=== PATIENT | female | born 1970 ===

== ENCOUNTER 2017-04-26 17:29 | Emergency (ER) | payer BC ==
[2017-04-26 17:34] VITALS: BP 131/76; PULSE 104; RESP 16; TEMP 99.1; O2SAT 100
--- NOTE | 2017-04-26 18:25 | ED PDOC ---
Lower Extremity Pain/Injury Time Seen by Provider: 04/26/17 17:31 Chief Complaint (Nursing): Lower Extremity Problem/Injury Chief Complaint (Provider): Right knee pain History Per: Patient History/Exam Limitations: no limitations Onset/Duration Of Symptoms: Days (x 1 month) Current Symptoms Are (Timing): Still Present Additional Complaint(s): Ceci Johnson is a 47-year-old female who presents to the emergency department with complaints of right knee pain, ongoing for 1 month. She had an X -Ray taken outpatient, which was reportedly normal. Patient has not seen an Orthopedics specialist or had an MRI yet. PMD: Dr. Mika Ribeiro Past Medical History Reviewed: Historical Data, Nursing Documentation, Vital Signs Vital Signs: Last Vital Signs Temp 99.1 F 04/26/17 17:31 Pulse 104 H 04/26/17 17:31 Resp 16 04/26/17 17:31 BP 131/76 04/26/17 17:31 Pulse Ox 100 04/26/17 17:31 - Medical History PMH: No Chronic Diseases - Surgical History Surgical History: No Surg Hx - Family History Family History: States: No Known Family Hx - Living Arrangements Living Arrangements: With Family - Social History Current smoker - smoking cessation education provided: No - Home Medications Home Medications: Ambulatory Orders Medication Instructions Recorded Ibuprofen [Motrin Tab] 800 mg PO Q6H PRN #20 tab 04/26/17 - Allergies Allergies/Adverse Reactions: Allergies Allergy/AdvReac Type Severity Reaction Status Date / Time No Known Allergies Allergy Verified 04/26/17 17:31 Review of Systems ROS Statement: Except As Marked, All Systems Reviewed And Found Negative Musculoskeletal: Positive for: Leg Pain (Right knee pain) Physical Exam - Reviewed Nursing Documentation Reviewed: Yes Vital Signs Reviewed: Yes - Physical Exam Appears: Positive for: Well, Non-toxic, No Acute Distress Head Exam: Positive for: ATRAUMATIC, NORMAL INSPECTION, NORMOCEPHALIC Skin: Positive for: Normal Color, Warm, DRY Eye Exam: Positive for: Normal appearance ENT: Positive for: Normal ENT Inspection Neck: Positive for: Normal, Painless ROM Respiratory: Negative for: Accessory Muscle Use, Respiratory Distress Back: Positive for: Normal Inspection Extremity: Positive for: Normal ROM. Negative for: Tenderness, Deformity, Swelling Neurologic/Psych: Positive for: Alert, Oriented - ECG O2 Sat by Pulse Oximetry: 100 (RA) Pulse Ox Interpretation: Normal Medical Decision Making Medical Decision Making: Discussed f/u with orthopedics. Rx given for motrin. Disposition - Clinical Impression Clinical Impression: Right knee pain - Patient ED Disposition Is Patient to be Admitted: No Counseled Patient/Family Regarding: Diagnosis, Need For Followup, Rx Given - Disposition Disposition: Routine/Home Disposition Time: 18:22 Condition: STABLE Prescriptions: Ibuprofen [Motrin Tab] 800 mg PO Q6H PRN #20 tab PRN Reason: Pain Instructions: Knee Pain (ED) Print Language: POLISH
== END 2017-04-26 18:50 | disposition home or self-care (01) ==
LOC: H.ER 17:29
DX: M25.561 Pain in right knee (principal)